=== PATIENT | female | born 1940 | race Caucasian/White ===

== ENCOUNTER 2017-04-04 08:48 | Day surgery (SDC) | payer OTHER ==
[~2017-04-04] VITALS: Ht 167.6 cm; Wt 127.0 kg
[~2017-04-04 08:48] MED LIST: AMARYL2 MG PO; ATIVAN1 MG PO; BIOTIN1000 MICRO PO; CALCIUM 600 +1 EAC1 PO; CO Q-10200 MG PO; CRANBERRY TABL1 EACH PO; EFFEXOR75 MG PO; GLUCOPHAGE500 MG PO; KRILL OIL 3001 EACH PO; LASIX80 MG PO; PRAVACHOL40 MG PO; PREVACID30 MG PO; PRINIVIL5 MG PO; TENORMIN50 MG PO; VITAMIN B-121000 MCG PO; VITAMIN B-6100 MG PO; VITAMIN D31000 UNIT PO; XARELTO20 MG PO; ZANAFLEX2 M1 PO; ZYLOPRIM100 MG PO
[2017-04-04 09:22] LABS: POINT-OF-CARE METER ID UU13113694
== END 2017-04-04 10:36 | disposition home or self-care (01) ==
LOC: PAIN 08:48 → SDC 09:30 → PAIN 10:36
PROVIDERS: Anesthesiology Pain Medicine
PROC: 3E0U33Z Introduction of Anti-inflammatory into Joints, Percutaneous Approach (ICD-10-PCS; principal; 2017-04-04)
DX: M46.1 Sacroiliitis, not elsewhere classified (principal); M47.816 Spondylosis without myelopathy or radiculopathy, lumbar region; M79.1 Myalgia; M10.00 Idiopathic gout, unspecified site; F41.9 Anxiety disorder, unspecified; G89.29 Other chronic pain; M54.5 Low back pain; E11.9 Type 2 diabetes mellitus without complications; M70.71 Other bursitis of hip, right hip; E78.5 Hyperlipidemia, unspecified; I10 Essential (primary) hypertension; E66.9 Obesity, unspecified; Z68.44 Body mass index [BMI] 60.0-69.9, adult; G47.9 Sleep disorder, unspecified; Z79.4 Long term (current) use of insulin; Z79.01 Long term (current) use of anticoagulants
CPT/HCPCS: 82948; J1030; J3010; S0020

== ENCOUNTER 2017-05-27 12:09 | Day surgery (SDC) | payer OTHER ==
[~2017-05-27] VITALS: Ht 167.6 cm; Wt 127.0 kg
[2017-05-27 13:03] LABS: POINT-OF-CARE METER ID UU14174212
== END 2017-05-27 15:26 | disposition home or self-care (01) ==
LOC: PAIN 12:09 → SDC 13:00 → PAIN 15:26
PROVIDERS: Anesthesiology Pain Medicine
DX: M47.816 Spondylosis without myelopathy or radiculopathy, lumbar region (principal); M54.5 Low back pain; G89.29 Other chronic pain; M46.1 Sacroiliitis, not elsewhere classified; F41.9 Anxiety disorder, unspecified; M70.71 Other bursitis of hip, right hip; I10 Essential (primary) hypertension; E11.9 Type 2 diabetes mellitus without complications; E66.9 Obesity, unspecified; Z68.42 Body mass index [BMI] 45.0-49.9, adult; Z86.73 Personal history of transient ischemic attack (TIA), and cerebral infarction without residual deficits; Z79.84 Long term (current) use of oral hypoglycemic drugs; Z79.01 Long term (current) use of anticoagulants
CPT/HCPCS: 82948; J1030; S0020

== ENCOUNTER 2017-06-04 12:38 | Day surgery (SDC) | payer OTHER ==
[~2017-06-04] VITALS: Ht 167.6 cm; Wt 127.0 kg
[2017-06-04 13:27] LABS: POINT-OF-CARE METER ID UU14174212
== END 2017-06-04 15:15 | disposition home or self-care (01) ==
LOC: PAIN 12:38 → SDC 13:30 → PAIN 15:15
PROVIDERS: Anesthesiology Pain Medicine
DX: M47.816 Spondylosis without myelopathy or radiculopathy, lumbar region (principal); M54.5 Low back pain; G89.29 Other chronic pain; M79.1 Myalgia; M46.1 Sacroiliitis, not elsewhere classified; E66.9 Obesity, unspecified; E11.9 Type 2 diabetes mellitus without complications; I10 Essential (primary) hypertension; E78.5 Hyperlipidemia, unspecified; Z68.42 Body mass index [BMI] 45.0-49.9, adult; Z79.84 Long term (current) use of oral hypoglycemic drugs; Z79.01 Long term (current) use of anticoagulants; Z79.891 Long term (current) use of opiate analgesic; Z86.73 Personal history of transient ischemic attack (TIA), and cerebral infarction without residual deficits
CPT/HCPCS: 82948; J1030; J2250; J3010; S0020